=== PATIENT | male | born 1950 | race Caucasian/White ===

== ENCOUNTER → 2017-01-15 | Outpatient (CLI) | payer OTHER ==
[2017-01-15 09:48] LABS: RED BLOOD COUNT 4.53 M/UL (4.20-5.50); WHITE BLOOD COUNT 8.2 K/UL (4.5-11.0)
[2017-01-15 10:05] LABS: BUN/CREATININE RATIO 15 (0-10)
== END ==
LOC: LAB 09:00
PROVIDERS: Nurse Practitioner
DX: I10 Essential (primary) hypertension (principal); E78.5 Hyperlipidemia, unspecified
CPT/HCPCS: 36415; 80053; 80061; 83036; 83735; 84443; 85025

== ENCOUNTER 2020-09-19 15:42 | Observation (INO) | payer MEDICARE, OTHER ==
[~2020-09-19] VITALS: Ht 182.9 cm; Wt 73.0 kg
[~2020-09-19 15:42] MED LIST: ASPIRIN EC81 MG PO; CLOPIDOGREL75 MG PO; CORDARONE 200M200 MG PO; HYDRALAZINE HC100 MG PO; ISOSORBIDE MON120 MG PO; LOPRESSOR50 MG PO; MICROZIDE12.5 MG PO; NORVASC10 MG PO; OXYCODONE-ACET1 EAC1 PO; PRAVACHOL40 MG PO; PROTONIX40 MG PO; VALIUM 5 MG TAB5 MG PO; ZANTAC150 MG PO; ZESTRIL40 MG PO
[2020-09-19 16:40] LABS: HEMOGLOBIN 13.7 gm/dl (14.0-17.5); RED BLOOD COUNT 4.28 M/UL (4.20-5.50); WHITE BLOOD COUNT 11.3 K/UL (4.5-11.0)
[2020-09-19 17:10] LABS: BUN/CREATININE RATIO 14 (0-10)
[2020-09-19] MEDS ORDERED: VITAMIN B-121000 MC2 SL (20:02)
[2020-09-19] MEDS ORDERED: ELIQUIS 5 MG TAB5 MG PO (20:06)
[2020-09-19] MEDS ORDERED: CLONIDINE HCL0.2 MG PO (20:08)
[2020-09-20 04:13] LABS: HEMOGLOBIN 11.9 gm/dl (14.0-17.5)
[2020-09-20 04:21] LABS: BUN/CREATININE RATIO 16 (0-10)
[2020-09-20 04:27] LABS: RED BLOOD COUNT 3.83 M/UL (4.20-5.50); WHITE BLOOD COUNT 6.6 K/UL (4.5-11.0)
--- NOTE | 2020-09-20 11:30 | NUR ---
I TOLD DR VILLASENOR HERS CLEARED ON THE CARDIO SIDE CAN GO HOME , SHE VERBALIZES
--- NOTE | 2020-09-20 17:24 | NUR ---
PT REFUSED FLU SHOT
== END 2020-09-20 17:03 | disposition home or self-care (01) ==
LOC: ER1 15:42 → M/S 18:57 → CDU 18:57 → M/S 22:52
PROVIDERS: Physician Assistant; Student in an Organized Health Care Education/Training Program; ADMIT Internal Medicine
DX: R07.89 Other chest pain (principal); I10 Essential (primary) hypertension; I48.0 Paroxysmal atrial fibrillation; E78.5 Hyperlipidemia, unspecified; K21.9 Gastro-esophageal reflux disease without esophagitis; F17.210 Nicotine dependence, cigarettes, uncomplicated; Z20.822 Contact with and (suspected) exposure to COVID-19; Z85.038 Personal history of other malignant neoplasm of large intestine; Z86.73 Personal history of transient ischemic attack (TIA), and cerebral infarction without residual deficits; Z90.49 Acquired absence of other specified parts of digestive tract; Z82.49 Family history of ischemic heart disease and other diseases of the circulatory system; Z88.6 Allergy status to analgesic agent; Z79.01 Long term (current) use of anticoagulants; Z79.02 Long term (current) use of antithrombotics/antiplatelets; Z79.899 Other long term (current) drug therapy
CPT/HCPCS: 0240U; 36415; 71045; 80048; 80053; 82550; 82553; 83874; 84484; 85025; 85610; 85730; 90471; 93005; 96374; 99285; G0378; J0360

== ENCOUNTER 2021-04-28 14:00 | Emergency (ER) | payer MEDICARE, OTHER ==
[~2021-04-28] VITALS: Ht 182.9 cm; Wt 65.8 kg
[~2021-04-28 14:00] MED LIST changes: +CLONIDINE HCL0.2 MG PO; +ELIQUIS 5 MG TAB5 MG PO; +VITAMIN B-121000 MC2 SL
== END 2021-04-28 16:46 | disposition home or self-care (01) ==
LOC: ER1 14:00
DX: U07.1 COVID-19 (principal); Z23 Encounter for immunization; E78.5 Hyperlipidemia, unspecified; I10 Essential (primary) hypertension; F17.200 Nicotine dependence, unspecified, uncomplicated; Z86.73 Personal history of transient ischemic attack (TIA), and cerebral infarction without residual deficits
CPT/HCPCS: 99283; M0243

== ENCOUNTER 2021-05-02 12:58 | Emergency (ER) | payer MEDICARE, OTHER ==
[~2021-05-02] VITALS: Ht 182.9 cm; Wt 65.8 kg
[2021-05-02 14:13] LABS: BUN/CREATININE RATIO 14 (0-10)
[2021-05-02 14:40] LABS: HEMOGLOBIN 13.1 gm/dl (14.0-17.5); RED BLOOD COUNT 4.27 M/UL (4.20-5.50); WHITE BLOOD COUNT 7.3 K/UL (4.5-11.0)
== END 2021-05-02 14:55 ==
LOC: ER1 12:58
PROVIDERS: Emergency Medicine
DX: U07.1 COVID-19 (principal); R41.82 Altered mental status, unspecified; I48.91 Unspecified atrial fibrillation; R58 Hemorrhage, not elsewhere classified; F17.200 Nicotine dependence, unspecified, uncomplicated; Z86.73 Personal history of transient ischemic attack (TIA), and cerebral infarction without residual deficits; Z79.1 Long term (current) use of non-steroidal anti-inflammatories (NSAID)
CPT/HCPCS: 31500; 36600; 70450; 70496; 70498; 71045; 80053; 80307; 81001; 82140; 82550; 82553; 82803; 82962; 83605; 83690; 83735; 83874; 83880; 84439; 84443; 84484; 85025; 85610; 85730; 93005; 94760; 96374; 96375; 99285; J0330; J1953; J2704; J7168; Q9967; U0002